=== PATIENT | female | born 1965 | race Two or more races ===

== ENCOUNTER 2017-05-03 15:15 | Emergency (ER) | payer MEDICAID, OTHER ==
[~2017-05-03] VITALS: Ht 160 cm; Wt 127.0 kg
[2017-05-03 17:04] VITALS: BP 147/78
[2017-05-03] MEDS ORDERED: ONDANSETRON HCL 4 MG/2 ML VIAL IV ONE (17:15)
[2017-05-03] MEDS ORDERED: HYDROmorphone HCL 2 MG/ML VL IV ONE (17:15)
== END 2017-05-03 17:38 | disposition short-term general hospital (02) ==
LOC: ER 15:15 → EDBD 15:15 → ER 17:38
DX: S72.491A Other fracture of lower end of right femur, initial encounter for closed fracture (principal); W18.39XA Other fall on same level, initial encounter; Y93.89 Activity, other specified; Y92.89 Other specified places as the place of occurrence of the external cause; Y99.8 Other external cause status
CPT/HCPCS: 73560; 96374; 96375; 99285; J1170; J2405